=== PATIENT | female | born 1995 | race Caucasian/White ===

== ENCOUNTER 2020-10-30 10:54 | Emergency (ER) | payer OTHER ==
[~2020-10-30] VITALS: Ht 170.2 cm; Wt 87.2 kg
--- NOTE | 2020-10-30 11:55 | NUR ---
ENTRANCE GUARD, PA AT BEDSIDE
--- NOTE | 2020-10-30 12:57 | NUR ---
Dr. Queen at bedside for exam.
[2020-10-30 13:27] VITALS: BP 124/85
== END 2020-10-30 13:29 | disposition home or self-care (01) ==
LOC: ED 12:22
DX: H57.89 Other specified disorders of eye and adnexa (principal); I10 Essential (primary) hypertension; G89.29 Other chronic pain; G43.909 Migraine, unspecified, not intractable, without status migrainosus
CPT/HCPCS: 99281; 99282